=== PATIENT | female | born 1985 | race Caucasian/White ===

== ENCOUNTER 2023-05-23 21:09 | Emergency (ER) | payer BC ==
[~2023-05-23] VITALS: Ht 172.7 cm; Wt 95.5 kg
[~2023-05-23 21:09] MED LIST: MOTRIN 800800 MG/TAB PO; PERCOCET 325 MG1 TA2 PO; PRENATAL TABLET PO
[2023-05-23 21:20] VITALS: TEMP 98
[2023-05-23 21:44] LABS: COLLECTION METHOD CLEAN CATCH
[2023-05-23 21:48] LABS: BASO % 0.7 % (0.0-2.0); EOS # 0.1 K/mm3 (0.0-0.7); EOS % 1.5 % (0.0-4.0); GRAN # 2.8 K/mm3 (1.4-6.5); GRAN % 50.8 % (42.2-75.2); HEMATOCRIT 39.1 % (37.0-47.0); HEMOGLOBIN 12.9 g/dl (12.5-16.0); LYMPH # 2.1 K/mm3 (1.2-3.4); LYMPH % 37.3 % (20.0-51.0); MEAN CELL VOLUME 90 fl (80.0-100.0); MEAN CORPUSCULAR HEMOGLOBIN 30 pg (27-31); MEAN CORPUSCULAR HGB CONC 33 g/dl (33.0-37.0); MEAN PLATELET VOLUME 9.9 fl (7.4-10.4); MONO # 0.5 K/mm3 (0.1-0.6); MONO % 9.5 % (1.7-9.3); PLATELET COUNT 273 K/mm3 (130-400); RED BLOOD COUNT 4.36 M/mm3 (4.10-5.30); REDCELL DISTRIBUTION WIDTH-CV 12.5 % (11.5-14.5)
[2023-05-23 22:04] LABS: ALBUMIN 3.9 gm/dL (3.5-5.0); BILIRUBIN,TOTAL 0.5 mg/dL (0.2-1.2); CALCIUM 9.6 mg/dL (8.4-10.2); CREATININE, serum 0.98 mg/dL (0.57-1.11); POTASSIUM 3.7 mmol/L (3.5-4.5); TOTAL PROTEIN 7.9 gm/dL (6.2-8.1)
[2023-05-23 22:06] LABS: PH 6.5 (5.0-8.5); URINE APPEARANCE Hazy (CLEAR/HAZY); URINE BLOOD 2+ (NEGATIVE); URINE COLOR Yellow (YELLOW); URINE GLUCOSE Negative (NEGATIVE); URINE KETONE Negative (NEGATIVE); URINE NITRATE Negative (NEGATIVE); URINE PROTEIN(semi-quant) 1+ (NEGATIVE); URINE UROBILINOGEN 0.2 E.U/dL (0.2-1.0)
[2023-05-23 22:07] LABS: MUCOUS Present (NOT PRESENT); SQUAMOUS EPITHELIAL 0-2 /hpf (0-10); URINE BACTERIA Occasional /hpf (NONE SEEN)
[2023-05-23 23:33] VITALS: BP 143/91; PULSE 88
== END 2023-05-23 23:36 | disposition home or self-care (01) ==
LOC: COL.ER 21:09
PROVIDERS: Emergency Medicine
DX: N20.1 Calculus of ureter (principal); Z28.310 Unvaccinated for COVID-19
CPT/HCPCS: J2270; J2405; J7030; Q9967